=== PATIENT | female | born 1995 | race Caucasian/White ===

== ENCOUNTER 2018-03-29 22:55 | Emergency (ER) | payer MEDICAID, MEDICARE ==
[~2018-03-29] VITALS: Ht 152.4 cm; Wt 59.0 kg
[2018-03-30] MEDS ORDERED: KETOROLAC 30MG/ML VIAL IV ONE
[2018-03-30 00:33] LABS: HEMATOCRIT 41.5 % (36.0-48.0); HEMOGLOBIN 14.3 g/dL (12.0-16.0); MEAN CORPUSCULAR HEMOGLOBIN 31.9 pg (28.0-32.0); MEAN CORPUSCULAR VOLUME 92.7 fL (81.0-99.0); PLATELET 179 x1000/uL (130-400); RED BLOOD CELL COUNT 4.47 mill/uL (4.2-5.4); RED CELL DISTRIBUTION WIDTH 12.7 % (11.6-14.6)
[2018-03-30 00:41] LABS: CHLORIDE 106 mEq/L (98-107)
[2018-03-30 00:52] LABS: CLARITY URINE CLEAR (CLEAR); COLOR URINE YELLOW (YELLOW); KETONES URINE NEGATIVE (NEGATIVE); LEUKOCYTE ESTERASE URINE NEGATIVE (NEGATIVE); NITRITE URINE NEGATIVE (NEGATIVE); OCCULT BLOOD URINE 2+ (NEGATIVE); PROTEIN URINE NEGATIVE (NEGATIVE); SPECIFIC GRAVITY URINE 1.007 (1.005-1.030)
[2018-03-30 04:57] VITALS: BP 95/62
== END 2018-03-30 04:58 | disposition home or self-care (01) ==
LOC: ER 22:55
DX: R50.9 Fever, unspecified (principal); R10.9 Unspecified abdominal pain; M54.5 Low back pain
CPT/HCPCS: 36415; 74176; 80053; 81003; 81025; 83605; 85027; 96374; 99284; J1885

== ENCOUNTER 2018-10-30 22:35 | Emergency (ER) | payer MEDICARE ==
[~2018-10-30] VITALS: Ht 152.4 cm; Wt 59.0 kg
[2018-10-31 00:48] LABS: CHLORIDE 104 mEq/L (98-107)
[2018-10-31 00:50] LABS: BASOPHILS % 0.7 % (0.0-2.0); EOSINOPHILS % 0.8 % (0.0-5.0); HEMOGLOBIN. 13.6 g/dL (12.0-16.0); LYMPHOCYTES % 22.7 % (20.0-50.0); MEAN CORPUSCULAR HEMOGLOBIN 32.2 pg (28.0-32.0); MEAN CORPUSCULAR VOLUME 92.4 fL (81.0-99.0); MEAN PLATELET VOLUME 8.5 fl (7.4-10.4); MONOCYTES % 5.9 % (2.0-8.0); NEUTROPHILS % 69.9 % (40.0-76.0); PLATELET 201 x1000/uL (130-400); RED BLOOD CELL COUNT 4.22 mill/uL (4.2-5.4); RED CELL DISTRIBUTION WIDTH 13.1 % (11.6-14.6)
[2018-10-31 01:00] LABS: CLARITY URINE TURBID (CLEAR); COLOR URINE YELLOW (YELLOW); KETONES URINE NEGATIVE (NEGATIVE); LEUKOCYTE ESTERASE URINE 3+ (NEGATIVE); NITRITE URINE NEGATIVE (NEGATIVE); OCCULT BLOOD URINE 3+ (NEGATIVE); PH URINE 6.5 (4.5-8.0); PROTEIN URINE 2+ (NEGATIVE)
[2018-10-31 01:11] LABS: B-HCG QUANTITATIVE 21289 mIU/mL (<3)
[2018-10-31] MEDS ORDERED: NITROFURANTOIN 100MG M/M CAPSULE PO ONE (02:00)
[2018-10-31 02:48] VITALS: BP 108/61
== END 2018-10-31 02:48 | disposition home or self-care (01) ==
LOC: ER 22:35
DX: O20.0 Threatened abortion (principal); Z3A.01 Less than 8 weeks gestation of pregnancy
CPT/HCPCS: 36415; 76801; 81025; 84702; 86850; 86900; 87077; 87186; 99284

== ENCOUNTER 2019-01-23 16:22 | Emergency (ER) | payer MEDICARE ==
[~2019-01-23] VITALS: Ht 152.4 cm; Wt 62.0 kg
[2019-01-23 17:16] LABS: CLARITY URINE CLEAR (CLEAR); COLOR URINE YELLOW (YELLOW); KETONES URINE NEGATIVE (NEGATIVE); LEUKOCYTE ESTERASE URINE NEGATIVE (NEGATIVE); NITRITE URINE NEGATIVE (NEGATIVE); OCCULT BLOOD URINE 1+ (NEGATIVE); PROTEIN URINE NEGATIVE (NEGATIVE); SPECIFIC GRAVITY URINE 1.002 (1.005-1.030); UROBILINOGEN URINE 0.2 E.U./dL (0.2-1.0)
[2019-01-23 18:20] LABS: BASOPHILS % 0.7 % (0.0-2.0); EOSINOPHILS % 0.9 % (0.0-5.0); HEMOGLOBIN. 13.2 g/dL (12.0-16.0); LYMPHOCYTES % 19.8 % (20.0-50.0); MEAN CORPUSCULAR HEMOGLOBIN 32.5 pg (28.0-32.0); MEAN CORPUSCULAR VOLUME 93.4 fL (81.0-99.0); MEAN PLATELET VOLUME 9.2 fl (7.4-10.4); NEUTROPHILS % 72.6 % (40.0-76.0); PLATELET 198 x1000/uL (130-400); RED BLOOD CELL COUNT 4.07 mill/uL (4.2-5.4); RED CELL DISTRIBUTION WIDTH 13.2 % (11.6-14.6)
[2019-01-23 18:26] LABS: CHLORIDE 109 mEq/L (98-107)
[2019-01-23 19:17] VITALS: BP 120/75
== END 2019-01-23 19:17 | disposition home or self-care (01) ==
LOC: ER 16:22
DX: O46.92 Antepartum hemorrhage, unspecified, second trimester (principal); Z3A.18 18 weeks gestation of pregnancy
CPT/HCPCS: 36415; 76805; 81003; 81025; 86850; 86900; 99284

== ENCOUNTER 2023-05-27 11:32 | Emergency (ER) | payer MEDICAID, MEDICARE ==
[~2023-05-27] VITALS: Ht 157.5 cm; Wt 60.0 kg
[2023-05-27 11:38] VITALS: O2SAT 98
[2023-05-27] MEDS: ONDANSETRON 4MG ODT PO STA (12:04)
[2023-05-27 13:34] LABS: BASOPHILS % 0.4 % (0.0-2.0); EOSINOPHILS % 2.3 % (0.0-5.0); HEMATOCRIT. 40.4 % (36.0-48.0); HEMOGLOBIN. 13.7 g/dL (12.0-16.0); LYMPHOCYTES % 37.3 % (20.0-50.0); MEAN CORPUSCULAR HEMOGLOBIN 31.3 pg (28.0-32.0); MEAN CORPUSCULAR HGB CONC 33.8 g/dL (31.0-37.0); MEAN CORPUSCULAR VOLUME 92.6 fL (81.0-99.0); MONOCYTES % 8.3 % (2.0-8.0); NEUTROPHILS % 51.7 % (40.0-76.0); PLATELET 245 x1000/uL (130-400); RED BLOOD CELL COUNT 4.37 mill/uL (4.2-5.4); RED CELL DISTRIBUTION WIDTH 13.4 % (11.6-14.6); WHITE BLOOD COUNT 5.4 x1000/uL (4.5-11.0)
[2023-05-27 13:54] LABS: ALANINE AMINOTRANSFERASE 169 IU/L (10-49); ASPARTATE AMINOTRANSFERASE 112 IU/L (<34); BILIRUBIN TOTAL 0.9 mg/dL (0.1-1.0); CARBON DIOXIDE 28 mEq/L (21-32); CHLORIDE 103 mEq/L (98-107); CREATININE 0.6 mg/dL (0.6-1.0); GLUCOSE 96 mg/dL (70-105); HCG SCREEN NEGATIVE; POTASSIUM 4.1 mEq/L (3.5-5.1); PROTEIN TOTAL 7.8 g/dL (6.0-8.3); SODIUM 138 mEq/L (136-145); UREA NITROGEN BLOOD 5 mg/dL (9-23)
[2023-05-27] MEDS: ONDANSETRON 4MG ODT PO SCH (13:59)
[2023-05-27 17:27] LABS: CLARITY URINE CLEAR (CLEAR); COLOR URINE DARK YELLOW (YELLOW); GLUCOSE URINE NEGATIVE (NEGATIVE); KETONES URINE 1+ (NEGATIVE); LEUKOCYTE ESTERASE URINE TRACE (NEGATIVE); NITRITE URINE NEGATIVE (NEGATIVE); OCCULT BLOOD URINE 3+ (NEGATIVE); PROTEIN URINE NEGATIVE (NEGATIVE); SPECIFIC GRAVITY URINE 1.016 (1.005-1.030)
[2023-05-27 17:50] LABS: WBC URINE 0-2 /hpf (0-2)
[2023-05-27 17:51] LABS: BACTERIA URINE NONE SEEN; SQUAMOUS EPITHELIAL CELL URINE RARE /lpf (RARE/1+)
[2023-05-27] MEDS ORDERED: ONDA4TAB11 PO (18:07)
[2023-05-27 18:26] VITALS: BP 106/66; PULSE 87; RESP 17; TEMP 98
== END 2023-05-27 18:44 | disposition home or self-care (01) ==
LOC: ER 12:49
DX: R11.0 Nausea (principal); R74.8 Abnormal levels of other serum enzymes
CPT/HCPCS: 99284; 76705; 71045; 80053; 81003; 84703; 83690; 85025; 36415; Q0162